=== PATIENT | female | born 2005 | race African-American/Black ===

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

== ENCOUNTER 2024-08-26 13:26 | Emergency (ER) | payer MEDICAID ==
[~2024-08-26] VITALS: Ht 175.3 cm; Wt 108.0 kg
[~2024-08-26 13:26] MED LIST: OMEP20CA14 MT; ONDA-239 PO
[2024-08-26 13:39] VITALS: BP 118/68; PULSE 91; RESP 18; TEMP 36.7; O2SAT 100
[2024-08-26 17:10] LABS: BASOPHILS % 0.4 % (0.0-2.0); EOSINOPHILS % 1.5 % (0.0-5.0); HEMATOCRIT. 38.2 % (36.0-48.0); HEMOGLOBIN. 12.3 g/dL (12.0-16.0); LYMPHOCYTES % 26.6 % (20.0-50.0); MEAN CORPUSCULAR HEMOGLOBIN 28.1 pg (28.0-32.0); MEAN CORPUSCULAR HGB CONC 32.2 g/dL (31.0-37.0); MEAN CORPUSCULAR VOLUME 87.4 fL (81.0-99.0); MEAN PLATELET VOLUME 8.4 fl (7.4-10.4); MONOCYTES % 8.7 % (2.0-8.0); NEUTROPHILS % 62.8 % (40.0-76.0); PLATELET 284 x1000/uL (130-400); RED BLOOD CELL COUNT 4.37 mill/uL (4.2-5.4); RED CELL DISTRIBUTION WIDTH 18.5 % (11.6-14.6); WHITE BLOOD COUNT 5.7 x1000/uL (4.5-11.0)
[2024-08-26 17:18] LABS: CARBON DIOXIDE 27 mEq/L (21-32); CHLORIDE 100 mEq/L (98-107); D-DIMER < 0.19 mg/L FEU (<0.50); INR 1.2; POTASSIUM 3.5 mEq/L (3.5-5.1); PROTHROMBIN TIME 12.8 sec (9.6-11.0); SODIUM 138 mEq/L (136-145)
[2024-08-26 17:19] LABS: CALCIUM 9.8 mg/dL (8.7-10.4)
[2024-08-26 17:24] LABS: CREATININE 0.7 mg/dL (0.6-1.0); GLUCOSE 80 mg/dL (70-105); UREA NITROGEN BLOOD 9 mg/dL (9-23)
[2024-08-26 17:25] LABS: ALBUMIN 4.6 g/dL (3.2-4.8)
[2024-08-26 17:26] LABS: ALANINE AMINOTRANSFERASE 27 IU/L (10-49); ASPARTATE AMINOTRANSFERASE 60 IU/L (<34); BILIRUBIN DIRECT 0.1 mg/dL (<=3.0); BILIRUBIN TOTAL 0.5 mg/dL (0.1-1.0); PROTEIN TOTAL 8.2 g/dL (6.0-8.3); TROPONIN I HIGH SENSITIVITY < 4 ng/L (3.0-34)
[2024-08-26 17:49] LABS: HCG SCREEN NEGATIVE
[2024-08-26] MEDS ORDERED: MAG-55 MT (17:55)
[2024-08-26] MEDS ORDERED: FAMO-135 MT (17:55)
== END 2024-08-26 18:03 | disposition home or self-care (01) ==
LOC: ER 13:26
DX: K29.70 Gastritis, unspecified, without bleeding (principal); R07.89 Other chest pain; Z79.899 Other long term (current) drug therapy
CPT/HCPCS: 36415; 71045; 80048; 80076; 83735; 83880; 84484; 84703; 85025; 85379; 93005; 99285